=== PATIENT | male | born 1945 | race Caucasian/White ===

== ENCOUNTER 2022-04-07 03:01 | Inpatient (IN) | payer MEDICARE, BC ==
[~2022-04-07] VITALS: Ht 193 cm; Wt 129.7 kg
[2022-04-07 03:15] VITALS: BP 146/61
--- NOTE | 2022-04-07 03:15 | NUR ---
DIRECTOR FURNITURE NOTE: ADMITTED A 76-Y/O, MALE, FROM [facility]. ADMITTED ON A VOLUNTARY STATUS FOR SUICIDAL IDEATION WITH NO SPECIFIC PLAN. UPON FACE TO FACE EVALUATION, PATIENT IS ALERT AND ORIENTED X4, DEPRESSED, MOOD IS ANGRY, GUARDED, ARGUMENTATIVE, EASILY AGITATED/IRRITABLE, SARCASTIC REMARKS. PATIENT DENIES SI/HI/AVH AT THIS TIME. SKIN ASSESSMENT DONE. ALL BELONGINGS WERE CHECKED FOR CONTRABAND AND WAS KEPT IN PT'S ROOM LOCKER. HIS VALUABLES WERE TAKEN TO [facility]. PATIENT'S RIGHTS WERE DISCUSSED AND BOOKLET WAS GIVEN. CONTACTED DR. ARMSTRONG AND HOSPITALIST BRIDGETT LINN AND INFORMED THEM OF THE ADMISSION. BED IN LOW AND LOCKED POSITION. SAFETY PRECAUTIONS MAINTAINED. WILL CONTINUE TO MONITOR Q15 MINS FOR MOOD, SAFETY AND BEHAVIOR. PT REFUSED TO COMMENT ABOUT FLU/PNA VAC AND REFUSING TO GET ONE. WILL INFORM FAMILY MEMBER IN THE MORNING. Addendum: 04/07/22 at 0705 by EDNA SALAS RN 0700- PATIENT'S SHAHZAD KUNZ NOTIFIED OF THE ADMISSION ([phone]).
[2022-04-07] MEDS ORDERED: MAG HYDROX/AL HYDROX/SIMETH 30 ML UDC PO PRN (04:00)
[2022-04-07] MEDS ORDERED: BLOOD SUGAR DIAGNOSTIC 1 EACH STRIP IN ONE (04:00)
[2022-04-07] MEDS ORDERED: TEMAZEPAM 7.5 MG CAPSULE PO PRN (04:00)
[2022-04-07] MEDS ORDERED: MAGNESIUM HYDROXIDE 30 ML UDC PO PRN ×2 (04:00→11:30)
[2022-04-07] MEDS ORDERED: POLY119P2 PO (06:03)
[2022-04-07] MEDS ORDERED: POLY15DR40 EACHEYE (06:03)
[2022-04-07] MEDS ORDERED: MULT-754 PO (06:03)
[2022-04-07] MEDS ORDERED: CARB1TAB21 PO (06:03)
[2022-04-07] MEDS ORDERED: ASPI-1420 PO (06:03)
[2022-04-07] MEDS ORDERED: LACT10SO3 PO (06:03)
[2022-04-07] MEDS ORDERED: RISP0.2515 PO (06:03)
[2022-04-07] MEDS ORDERED: LORA10TA7 PO (06:03)
[2022-04-07] MEDS ORDERED: BUPR100T6 PO (06:03)
[2022-04-07] MEDS ORDERED: DONE10TA44 PO (06:03)
[2022-04-07] MEDS ORDERED: BISA-79 PO (06:03)
[2022-04-07] MEDS ORDERED: OXYC5CAP18 PO ×2 (06:03)
[2022-04-07] MEDS ORDERED: FAMO20TA8 PO (06:03)
[2022-04-07] MEDS ORDERED: QUET50TA PO (06:03)
[2022-04-07] MEDS ORDERED: NA P133E4 RC (06:03)
[2022-04-07] MEDS ORDERED: DULO30CA52 PO (06:03)
[2022-04-07] MEDS ORDERED: DEXTROSE 50%-WATER 50 ML DISP.SYRIN IV PRN (06:30)
--- NOTE | 2022-04-07 07:27 | NUR ---
GPS RN OPENING NOTE RECEIVED PT ASLEEP IN BED, EASILY AROUSED. PT IS A/O X4, ABLE TO MAKE NEEDS KNOWN. PT IS ON ROOM AIR, TOLERATING WELL. NO SOB NOTED. NOT IN ANY SIGN OF RESPIRATORY DISTRESS. PT DENIES SI. SAFETY MEASURES IN PLACE: BED IN LOWEST AND LOCKED POSITION, SIDE RAILS UPX2, BED ALARM ON, AND CALL LIGHT WITHIN REACH. WILL CONTINUE TO MONITOR THIS PATIENT Q15 MINUTES WITH THE HELP OF STAFF TO MAINTAIN SAFETY.
[2022-04-07] MEDS: BLOOD SUGAR DIAGNOSTIC 1 EACH STRIP VI SCH ×4 (07:55→21:48)
[2022-04-07] MEDS: INSULIN REGULAR, HUMAN 100 UNIT/ML 3 ML VIAL SQ PRN ×2 (07:57→11:14)
[2022-04-07 08:00] VITALS: BP 153/98
[2022-04-07] MEDS ORDERED: ACET-868 PO (08:03)
[2022-04-07] MEDS ORDERED: BISA10SU11 RC (08:03)
[2022-04-07] MEDS ORDERED: MAGN400O6 PO (08:03)
[2022-04-07] MEDS ORDERED: GLUC1KIT IM (08:03)
[2022-04-07] MEDS ORDERED: OXYC5TAB3 PO (08:03)
[2022-04-07] MEDS ORDERED: INSU100V27 SQ (08:03)
[2022-04-07 08:26] LABS: ALANINE AMINOTRANSFERASE < 6 U/L (12-78); ALBUMIN 3.2 g/dL (3.4-5.0); ALKALINE PHOSPHATASE 105 U/L (46-116); ASPARTATE AMINOTRANSFERASE 14 U/L (15-37); BILIRUBIN,TOTAL 0.3 mg/dL (0.2-1.0); CALCIUM, SERUM 9.2 mg/dL (8.5-10.1); CARBON DIOXIDE 27 mmol/L (21-32); CHLORIDE 101 mmol/L (98-107); CREATININE 2.2 mg/dL (0.6-1.3); GLUCOSE 227 mg/dL (74-106); POTASSIUM 4.3 mmol/L (3.5-5.1); SODIUM SERUM 137 mmol/L (136-145); TOTAL PROTEIN, SERUM 6.5 g/dL (6.4-8.2); UREA NITROGEN, BLOOD 24 mg/dL (7-18)
--- NOTE | 2022-04-07 09:08 | NUR ---
CAROL Initial Discharge Note: Pt [facility] at [facility] located at [address], [place] [address]; ([phone]). CAROL spoke with admin Romero ([phone]) who stated that pt is welcomed back but they do not provide transportation and family needs too. CAROL will contact pt's Rosa ([phone]) to gather further collateral. CAROL will continue to work with the MD, family, and pt to help coordinate appropriate discharge.
--- NOTE | 2022-04-07 09:08 | NUR ---
CAROL Clinical Note: Pt admitted as a voluntary pt and had suicidal ideations at his assisted living. Pt currently resides at [facility] located at [address] [facility] [address], [place] [address]; ([phone]). CAROL spoke with admin Romero ([phone]) who stated that pt is welcomed back but they do not provide transportation and family needs too. CAROL will contact pt's Rosa ([phone]) to gather further collateral.
--- NOTE | 2022-04-07 09:09 | NUR ---
Treatment Plan: Pt refused to sign treatment plan and was angry. He was verbally abusive towards this contract technical writer.
--- NOTE | 2022-04-07 10:17 | NUR ---
CAROL Family Contact: SW contacted pt's Rosa ([phone]) and left a detailed voicemail to gather collateral and discuss treatment/discharge plan.
[2022-04-07] MEDS: BUPROPION XL 150 MG TAB.ER.24 PO SCH (11:13)
--- NOTE | 2022-04-07 11:15 | NUR ---
CAROL Family Contact: SW contacted pt's ex- Rosa ([phone]) to gather collateral. She stated that she is the DPOA and she will bring the paperworks tonight and will give to community arts centre manager. She reported that she apologizes for pt's behavior and stated that pt does better with male staff instead. She expressed that pt's doctors at the [facility] are Blow Mold Machine Operator, Dr. Vincent ([phone]) and Psychiatrist, Dr. Sun ([phone]). She did stated that if staff wants to build rapport with the pt to offer him a diet soda or sandwich. Ex- reported that in regards to transportation that son Yoel ([phone]) would need 24 hour notice to be able to fish bait picker pt. Ex- reported that she would want pt to return back to [facility].
[2022-04-07] MEDS ORDERED: ACETAMINOPHEN 325 MG TABLET PO PRN (11:30)
[2022-04-07] MEDS ORDERED: SITAGLIPTIN PHOSPHATE 50 MG TABLET PO SCH (11:30)
[2022-04-07] MEDS ORDERED: NA PHOS,M-B/NA PHOS,DI-BA 1 EA ENEMA RC PRN (11:30)
[2022-04-07] MEDS ORDERED: BISACODYL SUPP (10 MG) 10 MG/SUPP.RECT SUPP.RECT RC PRN (11:30)
[2022-04-07] MEDS ORDERED: oxyCODONE IR immediate release 5 MG PO PRN (11:30)
[2022-04-07] MEDS ORDERED: OXYCODONE HCL PO PRN (11:30)
[2022-04-07] MEDS ORDERED: POLYETHYLENE GLYCOL 3350 17 GM POWD.PACK PO PRN (12:30)
--- NOTE | 2022-04-07 12:33 | NUR ---
GPS RN NOTE JANUVIA MEDICATION SCHEDULED AT 1130 NOT GIVEN. MEDICATION WAS NOT AVAILABLE IN THE OMNICEL. CALLED PHARMACY AND PER PHARMACIST DRUG IS NOT AVAILABLE AND WILL FOLLOW UP WITH PT'S FAMILY.
[2022-04-07] MEDS: CARBIDOPA/LEVODOPA 25/100 MG 1 UDTAB PO SCH ×2 (12:36→16:45)
[2022-04-07 14:59] LABS: THYROID STIMULATING HORMONE 1.894 uIU/mL (0.358-3.74)
[2022-04-07] MEDS: LORAZEPAM 0.5 MG TABLET PO PRN (15:20)
--- NOTE | 2022-04-07 15:23 | NUR ---
GPS RN NOTE PT NOTED FEELING ANXIOUS AND WAS CRYING. ENCOURAGED PT TO EXPRESSED HIMSELF AND PT EXPRESSED FEELING DEPRESSED AND REQUESTED TO SPEAK WITH COAT REPAIR INSPECTOR. OFFERED PT ATIVAN MEDICATION TO HELP HIM FEEL CALM AND PT AGREED. ATIVAN 0.5 MG PO 1 TAB GIVEN TO PT ORDERED Q6HRS PRN FOR ANXIETY. MADE BAKERY PASTRY INTERNSHIP AWARE AND SHE WENT TO THE PT ROOM. WILL MONITOR AND REASSESS PT.
--- NOTE | 2022-04-07 15:51 | NUR ---
CAROL Note: CAROL provided therapy for pt. Pt was crying and stating that he is unhappy. Pt expressing that he wants to . Pt has active suicidal thoughts. He stated that he is feeling betrayed by his ex-. CAROL actively listened and provided emotional support. CAROL notified charge nurse Jaylyn to monitor pt. CAROL informed Dr. Wilkerson. Addendum: 04/07/22 at 1557 by CAROL GILMORE Pt was adamant about leaving the hospital. CAROL convinced pt to stay at the hospital continue treatment. He stated that he is experiencing PTSD (VA pt) and has personal problems with ex-. Pt was understanding and appeared to be calm afterwards.
[2022-04-07 16:00] VITALS: BP 151/99
[2022-04-07] MEDS: *INSULIN REGULAR(HUMULIN R)HUM 100 UNIT/ML VIAL SQ PRN ×2 (16:43→21:51)
[2022-04-07] MEDS: POLYVINYL ALCOHOL 15 ML BOTTLE EACHEYE SCH ×3 (16:47→21:00)
--- NOTE | 2022-04-07 16:51 | NUR ---
GPS RN NOTE PT REFUSED HIS ARTIFICIAL TEARS EYE DROPS MEDICATION SCHEDULED AT 1700. EXPLAINED RISK AND BENEFITS, PT STILL REFUSED.
--- NOTE | 2022-04-07 18:39 | NUR ---
RN-NOTE4S PATIENT DENIES SI DURING FACE TO FACE ASSESSMENT WITH HIM, STATED" I NEED TO GO HOME TOMORROW AND THAT I NEED TO CALL MY EX- IS SHE CAN PICK ME UP TOMORROW". KNITTING DEMONSTRATOR DID EXPLAINED THAT HE CAN CALL THE EX- ONCE THE PSYCHIATRIST HAD A DISCHARGE ORDER. PATIENT DID UNDERSTAND BUT STILL WANTS TO CALL THE EX-.PORTABLE PHONE GIVEN TO THE PATIENT. WILL CONT. MONITORING FOR SAFETY AND BEHAVIOR. WILL ENDORSE TO THE INCOMING SHIFT FOR THE CONTINUITY OF CARE. AND MONITORING.
[2022-04-07 19:38] VITALS: BP 146/90
--- NOTE | 2022-04-07 19:50 | NUR ---
noc rn opening received patient in bed, a/ox3. no s/s of apparent distress in room air. no c/o at this time just asked for apple juice. denies any SI nor HI at this time. will do Q15 visual checks and rounding with staff to ensure patient safety.
[2022-04-07] MEDS: TRAZODONE 50 MG TABLET PO SCH (21:43)
--- NOTE | 2022-04-08 06:22 | NUR ---
noc rn note MRSA collected
[2022-04-08 06:34] LABS: BASOPHILS % (AUTO) 0.5 % (0.0-2.0); EOSINOPHILS % (AUTO) 2.9 % (0.0-6.0); HEMATOCRIT 45 % (39-51); HEMOGLOBIN 15.1 g/dL (13.5-17.5); LYMPHOCYTES # (AUTO) 1.8 K/uL (0.8-4.8); LYMPHOCYTES % (AUTO) 28.8 % (20.0-44.0); MEAN CORPUSCULAR HGB CONC 34 g/dl (31.0-36.0); MEAN CORPUSCULAR VOLUME 93 fL (80-96); MONOCYTES # (AUTO) 0.6 K/uL (0.1-1.30); MONOCYTES % (AUTO) 9.2 % (2.0-12.0); NEUTROPHILS # (AUTO) 3.8 K/uL (1.8-8.9); NEUTROPHILS % (AUTO) 58.6 % (43.0-81.0); PLATELET COUNT (AUTO) 228 K/uL (150-450); RED BLOOD CELL COUNT(AUTO) 4.82 MIL/uL (4.5-6.0); WHITE BLOOD COUNT (AUTO) 6.4 K/uL (4.3-11.0)
[2022-04-08 06:51] LABS: CALCIUM, SERUM 9.2 mg/dL (8.5-10.1); CARBON DIOXIDE 29 mmol/L (21-32); CHLORIDE 102 mmol/L (98-107); GLUCOSE 203 mg/dL (74-106); MAGNESIUM 2.1 mg/dL (1.8-2.4); PHOSPHORUS 3.9 mg/dL (2.5-4.9); POTASSIUM 4.3 mmol/L (3.5-5.1); SODIUM SERUM 137 mmol/L (136-145); UREA NITROGEN, BLOOD 23 mg/dL (7-18)
[2022-04-08 07:07] LABS: THYROID STIMULATING HORMONE 2.226 uIU/mL (0.358-3.74)
[2022-04-08] MEDS: BLOOD SUGAR DIAGNOSTIC 1 EACH STRIP VI SCH ×4 (07:55→22:10)
[2022-04-08 08:00] VITALS: BP 123/90
[2022-04-08] MEDS: MULTIVITAMINS,THERAGRAN 1 UDTAB TABLET PO SCH ×2 (08:29→09:00)
[2022-04-08] MEDS: ASPIRIN EC 81 MG TABLET.DR PO SCH ×2 (08:29→09:00)
[2022-04-08] MEDS: FAMOTIDINE (20 MG) 20 MG TABLET PO SCH ×2 (08:29→09:00)
[2022-04-08] MEDS: BUPROPION XL 150 MG TAB.ER.24 PO SCH ×2 (08:29→09:00)
[2022-04-08] MEDS: LORATADINE 10 MG TABLET PO SCH ×2 (08:29→09:00)
[2022-04-08] MEDS: LINAGLIPTIN 5 MG TABLET PO SCH ×2 (08:29→09:00)
[2022-04-08] MEDS: LACTULOSE 10 G/15 ML UDC (PYXIS) PO SCH ×2 (08:29→09:00)
[2022-04-08] MEDS: CARBIDOPA/LEVODOPA 25/100 MG 1 UDTAB PO SCH ×4 (08:29→17:00)
[2022-04-08] MEDS: POLYVINYL ALCOHOL 15 ML BOTTLE EACHEYE SCH ×5 (08:30→21:20)
[2022-04-08] MEDS: INSULIN REGULAR, HUMAN 100 UNIT/ML 3 ML VIAL SQ PRN (08:33)
--- NOTE | 2022-04-08 09:28 | NUR ---
RN NOTES: PT REFUSED ALL MEDS INCLUDING INSULIN. PT IS VERY AGITATED AND REPEATEDLY STATES HE WANTS TO LEAVE. RN REORIENTED PT, AND MADE CHARGE NURSE AWARE. CRISIS TEAM CALLED, PT IS STILL UPSET BUT A LITTLE CALMER AT THE MOMENT SITTING ON HIS WHEELCHAIR TALKING WITH FLIGHT TEACHER Addendum: 04/08/22 at 0938 by JOSE JUAN RANDOLPH RN [facility]
--- NOTE | 2022-04-08 10:20 | NUR ---
RN NOTES: PT MET WITH CRISIS TEAM AND INSTRUCTOR LOOPING FOR FURTHER ASSESSMENT AND EVAL REGARDING SI, TILE BURNER AND MD AWARE WILL CONT WITH PLAN OF CARE
--- NOTE | 2022-04-08 10:32 | NUR ---
CAROL Family Contact: CAROL contacted pt's ex- Rosa ([phone]) and notified that pt will be placed on a 72 hour hold. She stated that she is agreeable of this.
--- NOTE | 2022-04-08 11:07 | NUR ---
CAROL Therapy: SW met with patient for individual therapy. Pt was tearful and crying. Pt kept stating that he does not want to live anymore. Pt reported that he is unhappy with his life. SW encouraged pt to think positively. SW actively listened and provided emotional support. Pt was fixated on discharged and wants to leave he believes that he will be at the hospital for 1 year. Pt also refusing to take his medications. SW encouraged him to take his medications so that he can improve and his mood can improve. SW offered pt to take a shower or go outside for fresh air and pt refused that he wants to stay in his room. SW will continue to follow up with pt.
[2022-04-08] MEDS ORDERED: LORAZEPAM INJ 2 MG/ML VIAL IM ONE (11:30)
--- NOTE | 2022-04-08 11:33 | NUR ---
RN NOTES: IM ATIVAN GIVEN ONCE PER MD ORDER
--- NOTE | 2022-04-08 11:35 | NUR ---
MS RN NOTES: PT REFUSED 12PM MEDICATION, PT STATES "I AM NOT TAKING ANYTHING! I WANT TO GET OUT OF HERE!" CHARGE AND MD AWARE.
--- NOTE | 2022-04-08 11:48 | NUR ---
RN NOTES: PER US TECH, PT REFUSED RENAL ULTRASOUND, STATES " YOU WILL NEED TO CUT IT OUT OF MY BODY TO CHECK IT"
--- NOTE | 2022-04-08 13:00 | NUR ---
RN NOTES: URINE SAMPLE COLLECTED AFTER PT VOIDED IN URINAL, ALERTED LAB FOR CASHIER CHECKER.
--- NOTE | 2022-04-08 15:50 | NUR ---
CAROL Note: SW has been monitoring pt and pt was found laying on the floor stating that he doesn't want to live and wants to . SW attempted to comfort pt and requested treatment team to help pt get up from the floor. Pt continued to cry and verbalizing he does not want to live anymore. Dr. Wilkerson has been notified and emergency IM has been requested. Staff will continue to monitor pt.
[2022-04-08 15:56] LABS: BILIRUBIN,URINE NEGATIVE (NEGATIVE); COLOR,URINE YELLOW (YELLOW); LEUKOCYTE ESTERASE ,URINE NEGATIVE (NEGATIVE); NITRITE, URINE NEGATIVE (NEGATIVE); PROTEIN,URINE 3+ mg/dl (NEGATIVE); UGLUCOSE 1+ mg/dL (NEGATIVE); UROBILINOGEN,URINE 0.2 EU/dL (0.2)
[2022-04-08 16:00] VITALS: BP 145/95
[2022-04-08] MEDS ORDERED: OLANZAPINE 10 MG VIAL IM ONE (16:00)
--- NOTE | 2022-04-08 16:04 | NUR ---
RN NOTES; SW STATED TO RN PT IS LAYING ON THE FLOOR AND REFUSING TO GET UP. PT IS CRYING AND UPSET AND EXPRESSING PARANOAIA THAT SOMEONE IS GOING TO TAKE HIS KIDNEYS. PT REORIENTED AND REDIRECTED BY RN AND SW, PT BEHAVIOR STAYED THE SAME. MADE MD GERALDO AWARE. ORDERED IM ZYPREXA 10 MG ONCE. RN ADMINISTERED AT LEFT GLUTEUS MARY WITH NO ISSUES, PT WAS COMPLIANT WITH IM INJ. Addendum: 04/08/22 at 1808 by JOSE JUAN RANDOLPH RN 5150 SERVED TO PT WITH CAROL HERNANDEZ
[2022-04-08 16:12] LABS: CREATININE, URINE 141.8 MG/DL (30.0-125.0)
[2022-04-08 16:36] LABS: RBC,URINE 0-2 /HPF (0-2)
[2022-04-08 16:37] LABS: BACTERIA,URINE Moderate /HPF (None Seen); SQUAMOUS EPITHELIAL CELL,UR Few /HPF (None Seen); WBC,URINE NONE SEEN /HPF (0-3)
--- NOTE | 2022-04-08 19:33 | NUR ---
RN NOTES: RECEIVED PATIENT SLEEP IN BED, BED IN LOW POSITION, NO COMPLAIN OF PAIN AND DISCOMFORT AT THIS TIME, NO BEHAVIORAL OR ANY COMBATIVE BEHAVIOR WAS OBSERVED, KEPT CLEAN AND DRY ALL NEEDS MET WILL CONTINUE TO MONITOR.
[2022-04-08 20:00] VITALS: BP 117/49
[2022-04-08] MEDS: TRAZODONE 50 MG TABLET PO SCH (21:50)
[2022-04-08] MEDS: *INSULIN REGULAR(HUMULIN R)HUM 100 UNIT/ML VIAL SQ PRN (22:10)
--- NOTE | 2022-04-08 22:11 | NUR ---
RN NOTES: BLOOD SUGAR-167/ 3 UNITS REGULAR INSULIN GIVEN PER SLIDING SCALE.
[2022-04-09] MEDS: BLOOD SUGAR DIAGNOSTIC 1 EACH STRIP VI SCH ×4 (07:30→21:10)
[2022-04-09 08:00] VITALS: BP 161/83
[2022-04-09] MEDS: BUPROPION XL 150 MG TAB.ER.24 PO SCH (09:00)
[2022-04-09] MEDS: LORATADINE 10 MG TABLET PO SCH (09:00)
[2022-04-09] MEDS: LINAGLIPTIN 5 MG TABLET PO SCH (09:00)
[2022-04-09] MEDS: MULTIVITAMINS,THERAGRAN 1 UDTAB TABLET PO SCH (09:00)
[2022-04-09] MEDS: FAMOTIDINE (20 MG) 20 MG TABLET PO SCH (09:00)
[2022-04-09] MEDS: CARBIDOPA/LEVODOPA 25/100 MG 1 UDTAB PO SCH ×3 (09:00→17:00)
[2022-04-09] MEDS: ASPIRIN EC 81 MG TABLET.DR PO SCH (09:00)
[2022-04-09] MEDS: LACTULOSE 10 G/15 ML UDC (PYXIS) PO SCH (09:00)
[2022-04-09] MEDS: POLYVINYL ALCOHOL 15 ML BOTTLE EACHEYE SCH ×4 (09:00→21:08)
[2022-04-09 16:00] VITALS: BP 149/89
[2022-04-09] MEDS: QUETIAPINE FUMARATE 25 MG TABLET PO SCH (17:00)
--- NOTE | 2022-04-09 17:17 | NUR ---
RN NOTES PATIENT STRONGLY REFUSED TO TAKE MEDICATION AND ACCU CHECK, VERBALLY ABUSIVE TO STAFF. RISKS AND BENEFITS EXPLAINED, STRONGLY REFUSED
[2022-04-09 20:00] VITALS: BP 145/90
[2022-04-09] MEDS: TRAZODONE 50 MG TABLET PO SCH (21:08)
[2022-04-10 07:09] LABS: CALCIUM, SERUM 8.9 mg/dL (8.5-10.1); CARBON DIOXIDE 27 mmol/L (21-32); CHLORIDE 104 mmol/L (98-107); CREATININE 2.3 mg/dL (0.6-1.3); GLUCOSE 181 mg/dL (74-106); POTASSIUM 3.9 mmol/L (3.5-5.1); SODIUM SERUM 140 mmol/L (136-145); UREA NITROGEN, BLOOD 30 mg/dL (7-18)
[2022-04-10 08:00] VITALS: BP 139/76
[2022-04-10] MEDS: MULTIVITAMINS,THERAGRAN 1 UDTAB TABLET PO SCH (08:16)
[2022-04-10] MEDS: ASPIRIN EC 81 MG TABLET.DR PO SCH (08:16)
[2022-04-10] MEDS: LACTULOSE 10 G/15 ML UDC (PYXIS) PO SCH (08:16)
[2022-04-10] MEDS: LINAGLIPTIN 5 MG TABLET PO SCH (08:16)
[2022-04-10] MEDS: FAMOTIDINE (20 MG) 20 MG TABLET PO SCH (08:16)
[2022-04-10] MEDS: CARBIDOPA/LEVODOPA 25/100 MG 1 UDTAB PO SCH ×3 (08:16→16:16)
[2022-04-10] MEDS: BUPROPION XL 150 MG TAB.ER.24 PO SCH (08:17)
[2022-04-10] MEDS: LORATADINE 10 MG TABLET PO SCH (08:17)
[2022-04-10] MEDS: QUETIAPINE FUMARATE 25 MG TABLET PO SCH ×2 (08:17→16:16)
[2022-04-10] MEDS: POLYVINYL ALCOHOL 15 ML BOTTLE EACHEYE SCH ×5 (08:27→21:47)
[2022-04-10] MEDS: INSULIN REGULAR, HUMAN 100 UNIT/ML 3 ML VIAL SQ PRN ×2 (09:20→12:18)
[2022-04-10] MEDS: BLOOD SUGAR DIAGNOSTIC 1 EACH STRIP VI SCH ×4 (09:21→21:48)
[2022-04-10 16:00] VITALS: BP 99/53
--- NOTE | 2022-04-10 19:45 | NUR ---
RN OPENING NOTE RECEIVED PATIENT SLEEPING IN BED, EASILY AWAKENED, ALERT/ORIENTED X 2-3, WITH SOME CONFUSION, PT ABLE TO MAKE NEEDS KNOWN. PATIENT STABLE ON RA, NO S/S OF DISTRESS OR SOB NOTED, BREATHING EVEN AND UNLABORED. PATIENT CALM BUT TEARFUL, SPEAKING ABOUT DIVORCE AND STATES HE WAS TOLD BY SOMEONE THAT HE WAS GOING TO STAY HERE FOR 7 MONTHS, FEARFUL THAT HE'S GOING TO BE TAKEN TO ALF AFTER, STATES HE IS A GOOD PERSON. CALMED PATIENT DOWN AND REORIENTED. SAFETY MEASURES IN PLACE: WILL CONTINUE TO MONITOR PATIENT Q 15 MINS
[2022-04-10 20:00] VITALS: BP 106/57
[2022-04-10] MEDS: TRAZODONE 50 MG TABLET PO SCH (21:48)
[2022-04-10] MEDS: *INSULIN REGULAR(HUMULIN R)HUM 100 UNIT/ML VIAL SQ PRN (22:02)
--- NOTE | 2022-04-11 06:21 | NUR ---
RN CLOSING NOTES PATIENT SLEEPING IN BED, ALERT/ORIENTED X 2-3, SOME CONFUSION. PATIENT STABLE ON RA, NO S/S OF DISTRESS OR SOB NOTED, BREATHING EVEN AND UNLABORED. PATIENT KEEPS INSISTING HE WAS TOLD HE WAS GOING TO BE HERE FOR 7 MONTHS AND BELIEVES HE WILL BE TRANSFERRED TO SENIOR LIVING AFTER, DESPITE EXPLAINING TO PATIENT MULTIPLE TIMES THAT THIS IS UNTRUE, PATIENT KEEPS FOCUSING ON THIS. PATIENT ALSO VERY TEARFUL AND DEPRESSED D/T DIVORCE. PATIENT WAS ALSO INSISTING ON SLEEPING ON THE FLOOR AND BECAME UPSET WHEN HE WASN'T ALLOWED TO DO SO, WAS PLACED IN ANA CHAIR FOR A BIT D/T ATTEMPTING TO GET OUT OF BED WITH UNSTEADY GAIT, LATER RETURNED TO BED WITH NO ATTEMPTS TO GET OUT OF BED ANYMORE. REORIENTED AND COMFORTED PATIENT MULTIPLE TIMES DURING SHIFT. PATIENT WAS MED COMPLIANT. NO AGGRESSIVE BEHAVIOR THIS SHIFT. SAFETY MEASURES MAINTAINED, Q15 MIN SAFETY CHECKS. WILL ENDORSE TO DAYSHIFT RN FOR CONTINUITY OF CARE
--- NOTE | 2022-04-11 07:15 | NUR ---
RN OPENING NOTES: RECEIVED PATIENT SLEEPING IN BED, EASILY AROUSES TO VOICE AND TACTILE STIMULI. PATIENT IS ALERT/ORIENTED X 2, ON RA WITH NO RESPIRATORY DISTRESS NOTED, BREATHING EVEN AND UNLABORED. PATIENT ABLE TO MAKE NEEDS KNOWN. PATIENT CALM AT THIS TIME. PATIENT STATED THAT HE WAS TOLD HE WAS GOING TO STAY HERE FOR 7 MONTHS PATIENT REORIENTED. SAFETY MEASURES IMPLEMENTED. BED LOCKED AND IN LOWEST POSITION. WILL CONTINUE TO MONITOR PATIENT Q 15 MINS
[2022-04-11] MEDS: INSULIN REGULAR, HUMAN 100 UNIT/ML 3 ML VIAL SQ PRN ×3 (07:58→21:38)
[2022-04-11] MEDS: BLOOD SUGAR DIAGNOSTIC 1 EACH STRIP VI SCH ×4 (07:59→21:57)
[2022-04-11 08:00] VITALS: BP 138/67
[2022-04-11] MEDS: FAMOTIDINE (20 MG) 20 MG TABLET PO SCH (08:47)
[2022-04-11] MEDS: LACTULOSE 10 G/15 ML UDC (PYXIS) PO SCH (08:47)
[2022-04-11] MEDS: LINAGLIPTIN 5 MG TABLET PO SCH (08:48)
[2022-04-11] MEDS: LORATADINE 10 MG TABLET PO SCH (08:48)
[2022-04-11] MEDS: MULTIVITAMINS,THERAGRAN 1 UDTAB TABLET PO SCH (08:48)
[2022-04-11] MEDS: BUPROPION XL 150 MG TAB.ER.24 PO SCH (08:48)
[2022-04-11] MEDS: POLYVINYL ALCOHOL 15 ML BOTTLE EACHEYE SCH ×4 (08:48→21:38)
[2022-04-11] MEDS: ASPIRIN EC 81 MG TABLET.DR PO SCH (08:48)
[2022-04-11] MEDS: CARBIDOPA/LEVODOPA 25/100 MG 1 UDTAB PO SCH ×3 (08:48→16:52)
[2022-04-11] MEDS: QUETIAPINE FUMARATE 25 MG TABLET PO SCH ×2 (08:48→16:52)
[2022-04-11] MEDS: ACETAMINOPHEN 325 MG TABLET PO PRN (11:28)
--- NOTE | 2022-04-11 14:18 | NUR ---
ROSA KEYS CALLED AND UPDATED OF THE PATIENT'S CONDITION. EXPLAINED TO HER THAT THE PATIENT WILL BE ADMITTED FOR 14 DAY HOLD. NO FURTHER QUESTIONS OR CONCERNS AT THIS TIME
[2022-04-11 16:00] VITALS: BP 134/80
[2022-04-11] MEDS: *INSULIN REGULAR(HUMULIN R)HUM 100 UNIT/ML VIAL SQ PRN (17:02)
--- NOTE | 2022-04-11 18:44 | NUR ---
RN CLOSING NOTES PATIENT IN BED, AWAKE, ALERT, ORIENTED X 2-3, WITH SOME PERIODS OF CONFUSION. PATIENT ON RA WITH NO RESPIRATORY DISTRESS NOTED THROUGHOUT SHIFT. PATIENT HAD A TEARFUL EPISODE EARLIER WHEN HE WAS TALKING ABOUT HIS FRIEND AND DEPRESSED ABOUT HIS DIVORCE BUT BECAME EXCITED AND HAPPY IN THE LATE AFTERNOON STATING THAT HE ASKED A WOMAN TO HIM AND SHE SAID YES. PATIENT WAS MED COMPLIANT. NO AGGRESSIVE BEHAVIOR NOTED THROUGHOUT SHIFT. ALL SAFETY MEASURES IMPLEMENTED. ALL NEEDS MET AND ANTICIPATED. SAFETY CHECK DONE Q15 MIN WILL ENDORSE TO INCOMING NURSE FOR CONTINUITY OF CARE
[2022-04-11 20:00] VITALS: BP 113/86
[2022-04-11] MEDS: TRAZODONE 50 MG TABLET PO SCH (21:35)
[2022-04-12] MEDS: BLOOD SUGAR DIAGNOSTIC 1 EACH STRIP VI SCH ×4 (07:30→22:09)
[2022-04-12 08:00] VITALS: BP 152/77
[2022-04-12] MEDS: LORATADINE 10 MG TABLET PO SCH (09:04)
[2022-04-12] MEDS: LACTULOSE 10 G/15 ML UDC (PYXIS) PO SCH (09:04)
[2022-04-12] MEDS: ASPIRIN EC 81 MG TABLET.DR PO SCH (09:04)
[2022-04-12] MEDS: FAMOTIDINE (20 MG) 20 MG TABLET PO SCH (09:05)
[2022-04-12] MEDS: QUETIAPINE FUMARATE 25 MG TABLET PO SCH ×2 (09:05→17:24)
[2022-04-12] MEDS: CARBIDOPA/LEVODOPA 25/100 MG 1 UDTAB PO SCH ×3 (09:05→17:24)
[2022-04-12] MEDS: MULTIVITAMINS,THERAGRAN 1 UDTAB TABLET PO SCH (09:06)
[2022-04-12] MEDS: BUPROPION XL 150 MG TAB.ER.24 PO SCH (09:10)
[2022-04-12] MEDS: LINAGLIPTIN 5 MG TABLET PO SCH (09:10)
[2022-04-12] MEDS: POLYVINYL ALCOHOL 15 ML BOTTLE EACHEYE SCH ×4 (09:22→21:13)
[2022-04-12] MEDS: INSULIN REGULAR, HUMAN 100 UNIT/ML 3 ML VIAL SQ PRN ×2 (11:31→18:23)
[2022-04-12 16:00] VITALS: BP 126/92
[2022-04-12 20:13] VITALS: BP 155/88
[2022-04-12] MEDS: TRAZODONE 50 MG TABLET PO SCH (21:13)
[2022-04-12] MEDS: *INSULIN REGULAR(HUMULIN R)HUM 100 UNIT/ML VIAL SQ PRN (21:15)
[2022-04-12 23:04] LABS: CALCIUM, SERUM 8.8 mg/dL (8.5-10.1); CARBON DIOXIDE 24 mmol/L (21-32); CHLORIDE 103 mmol/L (98-107); CREATININE 2.2 mg/dL (0.6-1.3); GLUCOSE 198 mg/dL (74-106); SODIUM SERUM 136 mmol/L (136-145); UREA NITROGEN, BLOOD 34 mg/dL (7-18)
[2022-04-13] MEDS: BLOOD SUGAR DIAGNOSTIC 1 EACH STRIP VI SCH ×4 (07:30→21:46)
[2022-04-13 08:00] VITALS: BP 158/90
[2022-04-13] MEDS: CARBIDOPA/LEVODOPA 25/100 MG 1 UDTAB PO SCH ×3 (08:59→16:19)
[2022-04-13] MEDS: ASPIRIN EC 81 MG TABLET.DR PO SCH (08:59)
[2022-04-13] MEDS: LORATADINE 10 MG TABLET PO SCH (08:59)
[2022-04-13] MEDS: MULTIVITAMINS,THERAGRAN 1 UDTAB TABLET PO SCH (08:59)
[2022-04-13] MEDS: LACTULOSE 10 G/15 ML UDC (PYXIS) PO SCH (08:59)
[2022-04-13] MEDS: QUETIAPINE FUMARATE 25 MG TABLET PO SCH ×2 (08:59→16:19)
[2022-04-13] MEDS: LINAGLIPTIN 5 MG TABLET PO SCH (08:59)
[2022-04-13] MEDS: BUPROPION XL 150 MG TAB.ER.24 PO SCH (09:00)
[2022-04-13] MEDS: FAMOTIDINE (20 MG) 20 MG TABLET PO SCH (09:00)
[2022-04-13] MEDS: POLYVINYL ALCOHOL 15 ML BOTTLE EACHEYE SCH ×4 (09:22→21:26)
[2022-04-13] MEDS: *INSULIN REGULAR(HUMULIN R)HUM 100 UNIT/ML VIAL SQ PRN ×2 (09:35→21:47)
--- NOTE | 2022-04-13 10:00 | NUR ---
RN NOTES - BS = 228 , PER INSULIN RANGE 4 UNITS GIVEN RIGHT DELTOID OTHER SITE OPPOSED TO LAST TIME GIVEN TO HELP ROTATE THE SITES. PT COMPLIANT WITH CARE
[2022-04-13] MEDS: INSULIN REGULAR, HUMAN 100 UNIT/ML 3 ML VIAL SQ PRN (12:49)
--- NOTE | 2022-04-13 13:00 | NUR ---
RN NOTES BS = 195 , INSULIN GIVEN AT 3 UNITS PER INSULIN ORDER AT THIS TIME, IN OTHER SITE ON LEFT DELTOID AREA TO ROTATE THE SITES, PT COMPLIANT WITH CARE
--- NOTE | 2022-04-13 14:41 | NUR ---
RN OPENING NOTES - RECEIVED PATIENT AWAKE, ALERT, ORIENTED X 2-3, SITTING UP IN BED TALKING WITH ME AND ABLE TO MAKE ALL NEEDS KNOWN, SOME PERIODS OF CONFUSION NOTED, PATIENT ON ROOMAIR NO SOB, NO RESPIRATORY DISTRESS NOTED THROUGHOUT SHIFT, PATIENT EXPRESSED SADNESS BECAUSE HIS EX HAD SAID NO TO REMARRY HIM, GAVE PT ENCOURAGEMENT THAT THINGS HAPPEN FOR A REASON AND TO TRUST AND BELIEVE THINGS WILL GET BETTER, I ASKED IF HE WANTED PRAYER AND HE SAID " WELL YES MA'AM I SURE DO, SO WE PRAYED AND I TOLD HIM THAT GODS REJECTION NOW WAS A FORM OF PROTECTION FOR HIS FUTURE AND IT WAS GOD LEADING HIM INTO ANOTHER DIRECTION AND PATH FOR HIS LIFE" HIS EYES FILLED WITH TEARS AND HE WAS FULL OF MURPHY HE SAID " THIS REALLY GAVE HIM GREAT HOPE AND HE UNDERSTANDS WHAT I AM TRYING TO EXPLAIN TO HIM SO HE CHOSE TO BE HAPPY" NO AGGRESSIVE BEHAVIOR NOTED, PT HELPFUL WITH HIS ROOM MATE AND ALL SAFETY MEASURES IMPLEMENTED. ALL NEEDS MET AND ANTICIPATED. SAFETY CHECKS PERFORMED PER GPS LUIS CALL , WILL CONTINUE TO MONITOR FOR NEEDS & SAFETY.
[2022-04-13 16:00] VITALS: BP 150/84
--- NOTE | 2022-04-13 16:00 | NUR ---
RN-CO; Noticed that patient is easily agitated especially when approach and redirected. Reminded to always use his walker and call for assistance but he is restless and preoccupied with his thoughts.
--- NOTE | 2022-04-13 16:02 | NUR ---
CAROL Family Contact: CAROL contacted pt's ex- Rosa ([phone]) and shared that pt fell in January 19 at home. She stated that she has been contacting her and stating that he has pain. CAROL transferred this note to charge nurse Keely.
--- NOTE | 2022-04-13 16:12 | NUR ---
RN-CO: DR Samuel made aware that patient has moderate to severe body pain due to hx of rib fracture. Awaiting for response.
--- NOTE | 2022-04-13 16:16 | NUR ---
CAROL Family Contact: CAROL contacted pt's ex- Rosa ([phone]) who stated that pt has a CT scan on April 21. She wanted to know dc day. CAROL will discuss with Dr. Wilkerson.
[2022-04-13] MEDS: LORAZEPAM 0.5 MG TABLET PO PRN (16:19)
[2022-04-13] MEDS: ACETAMINOPHEN 325 MG TABLET PO PRN (16:19)
--- NOTE | 2022-04-13 16:50 | NUR ---
RN NOTES FAMILY MEMBER CALLING REQUESTING THAT WE GIVE PAIN MEDICATION TO PT HE IS STATING TO FAMILY ON PHONE HE IS IN PAIN, PT GIVEN ALL MD ORDERS AND PRN ORDERS TO HELP RELIEVE PAIN OR ANXIETY AT THIS TIME, WILL CONTINUE TO MONITOR PT - PT STATING NO PAIN AT THIS TIME.
--- NOTE | 2022-04-13 18:00 | NUR ---
RN NOTES PT WAS GIVEN THE HYDROCODONE PER PT AND FAMILY REQUEST FAMILY HAD CALLED 3 TIMES REQUESTING THE MEDICATION STATING PT WAS STATING HE WAS IN PAIN ON PHONE TO THEM, PT EDUCATED TO STAY IN BED AND RELAX DUE TO MEDICATION MAKING SENSE OF BALANCE UNSTEADY AND BODY MUSCLES BEING MORE RELAXED TO HELP REDUCE ANY PAIN OR DISCOMFORT, PT AGREED TO STAY IN BED AND RELAX, WILL MONITOR PT FOR SAFETY
--- NOTE | 2022-04-13 18:34 | NUR ---
RN NOTES PT NON-COMPLIANT WITH DIRECTION AND EDUCATION OF STAYING IN BED TO RELAX EITHER SITTING OR LAYING DOWN DUE TO TX OF MEDICATION OF THE HYDROCODONE AND AMBULATED WITH WALKER INTO DINING AREA ON OWN, DID NOT ASK FOR ANY HELP, PT STATED HE REACHED DOWN FOR A BOOK AND THEN TUMBLED OVER AND THEN LANDED ON HIS BUTTOCKS ON THE FLOOR, PT IS NOT STATING ANY PAIN AT THIS TIME. ALL VS TAKEN B/P = 133/70, PULSE = 118, TEMP = 97.6, RR = 20 PAIN IS A 0 OUT OF 0 - 10 AT THIS TIME, MD CHOW NOTIFIED, RN BOARD MEMBER RUSS NOTIFIED, MD WALTERS NOTIFIED, FAMILY OR EX ROSA KEYS NOTIFIED LEFT A MESSAGE, AWAITING ANY NEW ORDERS AT THIS TIME, PT HELP UP TO WHEEL CHAIR AND WHEELED BACK INTO BEDROOM AND HELPED BACK TO BED AND INSTRUCTED TO PLEASE STAY IN BED UNTIL NOTIFIED TO REST AND FOR SAFETY, ALL WHEELS ON BED LOCKED, BED ALARM ON, INSTRUCTED TO ASK FOR HELP IF NEEDED FOR ANY REASON TO VOID OR NEED OF WATER FOOD OR OTHER, AGREED TO BE COMPLIANT, UNDER CLOSE MONITORING AT THIS TIME TO PROVIDE SAFETY.
--- NOTE | 2022-04-13 18:45 | NUR ---
RN-CO: Paged Dr Samuel to obtain order due to status post fall incident. Offered Tylenol patient refused at this time. Dr Mayi Nielsen made aware of the incident, re educated( huddle) the staff to be more vigilant to prevent another incident. Awaiting for Dr Samuel to call back. Sample Taker Operator, Gisela made aware of the incident.
--- NOTE | 2022-04-13 18:55 | NUR ---
RN NOTES MD WALTERS CALLED TWO TIMES NO RESPONSE AT THIS TIME WILL ENDORSE TO ONCOMING MD FOR NEXT SHIFT FOR ANY NEW ORDERS AND WILL ENDORSE TO ONCOMING NURSE ONCOMING SHIFT, LEFT MESSAGE FOR FAMILY ON VOICE MAIL TO ROSA KEYS ABOUT THE WITNESSED FALL.
--- NOTE | 2022-04-13 19:03 | NUR ---
RN-CO: X RAY OF THE LUMBAR ORDERED BY DR WALTERS , NOTED .
[2022-04-13 20:00] VITALS: BP 155/73
[2022-04-13] MEDS: TRAZODONE 50 MG TABLET PO SCH (21:26)
--- NOTE | 2022-04-14 01:36 | NUR ---
RN NOTE: RELAYED TO FAMILY MEDICINE PHYSICIAN ASSISTANT ALETHEA HURLEY RE: URINE CULTURE AND SENSITIVITY RESULT AND OBTAIN NEW ORDER OF BACTRIM DS PO BID NOTED AND CARRIED OUT.
--- NOTE | 2022-04-14 07:15 | NUR ---
RN NOTE- PT IN ROOM, WITHDRAWN, ISOLATIVE, CALM AND COMFORTABLE, NO SIGNS OF DISTRESS NOTED, MED COMPLIANT, PO INTAKE GOOD, NO BEHAVIORAL ISSUES, DENIES SI HI VH
[2022-04-14] MEDS: BLOOD SUGAR DIAGNOSTIC 1 EACH STRIP VI SCH ×4 (07:28→21:25)
[2022-04-14] MEDS: INSULIN REGULAR, HUMAN 100 UNIT/ML 3 ML VIAL SQ PRN ×3 (07:35→17:04)
[2022-04-14 08:00] VITALS: BP 133/82
[2022-04-14] MEDS: BUPROPION XL 150 MG TAB.ER.24 PO SCH (08:46)
[2022-04-14] MEDS: QUETIAPINE FUMARATE 25 MG TABLET PO SCH ×2 (08:46→16:36)
[2022-04-14] MEDS: MULTIVITAMINS,THERAGRAN 1 UDTAB TABLET PO SCH (08:46)
[2022-04-14] MEDS: SULFAMETH/TRIMETH 800/160 MG 1 UDTAB TABLET PO SCH ×2 (08:46→21:13)
[2022-04-14] MEDS: LACTULOSE 10 G/15 ML UDC (PYXIS) PO SCH (08:46)
[2022-04-14] MEDS: ASPIRIN EC 81 MG TABLET.DR PO SCH (08:46)
[2022-04-14] MEDS: CARBIDOPA/LEVODOPA 25/100 MG 1 UDTAB PO SCH ×3 (08:46→16:36)
[2022-04-14] MEDS: FAMOTIDINE (20 MG) 20 MG TABLET PO SCH (08:46)
[2022-04-14] MEDS: LORATADINE 10 MG TABLET PO SCH (08:46)
[2022-04-14] MEDS: LINAGLIPTIN 5 MG TABLET PO SCH (08:46)
[2022-04-14] MEDS: POLYVINYL ALCOHOL 15 ML BOTTLE EACHEYE SCH ×4 (08:47→21:13)
--- NOTE | 2022-04-14 12:00 | NUR ---
Facility Contact: SW spoke with admin Romero ([phone]) who stated that she would need to discuss with treatment team and they will possibly need to assess pt before returning back. SW contacted again at 12PM to follow up they stated that they will either contact this production underwriter end of today or tomorrow.
--- NOTE | 2022-04-14 13:33 | NUR ---
FACILITY CONTACT: CAROL RECEIVED A CALL FROM ROSA SLAUGHTERURA ADMIN ([phone]) ([phone]) AND PERSONAL NUMBER ([phone]) WHO WOULD WANT TO DO A FACETIME ASSESSMENT TOMORROW 04/14. CAROL FAXED PATIENT'S UPDATED CLINICALS.
[2022-04-14 16:00] VITALS: BP 138/82
[2022-04-14 21:00] VITALS: BP 143/69
[2022-04-14] MEDS: TRAZODONE 50 MG TABLET PO SCH (21:13)
[2022-04-14] MEDS: *INSULIN REGULAR(HUMULIN R)HUM 100 UNIT/ML VIAL SQ PRN (21:37)
[2022-04-15] MEDS: BLOOD SUGAR DIAGNOSTIC 1 EACH STRIP VI SCH ×4 (07:30→22:39)
[2022-04-15 08:00] VITALS: BP 145/79
--- NOTE | 2022-04-15 08:00 | NUR ---
Pt received from incoming nurse awake and alert Vital signs stable. PT sitting in bed quietly reading his journal. Pt took all meds. Will continue to monitor.
[2022-04-15] MEDS: CARBIDOPA/LEVODOPA 25/100 MG 1 UDTAB PO SCH ×3 (09:44→17:46)
[2022-04-15] MEDS: LACTULOSE 10 G/15 ML UDC (PYXIS) PO SCH (09:44)
[2022-04-15] MEDS: BUPROPION XL 150 MG TAB.ER.24 PO SCH (09:44)
[2022-04-15] MEDS: LINAGLIPTIN 5 MG TABLET PO SCH (09:45)
[2022-04-15] MEDS: FAMOTIDINE (20 MG) 20 MG TABLET PO SCH (09:45)
[2022-04-15] MEDS: QUETIAPINE FUMARATE 25 MG TABLET PO SCH ×2 (09:45→17:46)
[2022-04-15] MEDS: ASPIRIN EC 81 MG TABLET.DR PO SCH (09:45)
[2022-04-15] MEDS: LORATADINE 10 MG TABLET PO SCH (09:45)
[2022-04-15] MEDS: SULFAMETH/TRIMETH 800/160 MG 1 UDTAB TABLET PO SCH ×2 (09:51→21:35)
[2022-04-15] MEDS: MULTIVITAMINS,THERAGRAN 1 UDTAB TABLET PO SCH (09:51)
[2022-04-15] MEDS: POLYVINYL ALCOHOL 15 ML BOTTLE EACHEYE SCH ×4 (09:52→21:36)
--- NOTE | 2022-04-15 11:41 | NUR ---
FACILITY CONTACT: SW RECEIVED A CALL FROM ROSA SNELL [employer] ([phone]) (F:[phone]) WHO ASSESSED PT VIA [employer] AND STATED PT IS WELCOMED BACK ON WEDNESDAY. SW SENT PT'S RECENT CLINICAL NOTES.
--- NOTE | 2022-04-15 12:46 | NUR ---
Court Notification: SW notified pt's ex- Rosa ([phone]) and notified of 5250 hearing today.
[2022-04-15 16:00] VITALS: BP 111/52
--- NOTE | 2022-04-15 16:41 | NUR ---
Court Hearing: Patient's court hearing for 2101 hearing was upheld GD and danger to self.
[2022-04-15] MEDS: *INSULIN REGULAR(HUMULIN R)HUM 100 UNIT/ML VIAL SQ PRN ×2 (18:43→22:32)
[2022-04-15 18:59] LABS: CARBON DIOXIDE 30 mmol/L (21-32); CHLORIDE 103 mmol/L (98-107); CREATININE 2.6 mg/dL (0.6-1.3); GLUCOSE 218 mg/dL (74-106); POTASSIUM 4.5 mmol/L (3.5-5.1); SODIUM SERUM 139 mmol/L (136-145); UREA NITROGEN, BLOOD 39 mg/dL (7-18)
--- NOTE | 2022-04-15 19:18 | NUR ---
Report given to incoming nurse. Pt in stable conditon. no acute distress noted.
[2022-04-15 20:58] VITALS: BP 137/72
[2022-04-15] MEDS: SIMVASTATIN 10 MG TABLET PO SCH (22:30)
[2022-04-15] MEDS: TRAZODONE 50 MG TABLET PO SCH (22:30)
[2022-04-16] MEDS: BLOOD SUGAR DIAGNOSTIC 1 EACH STRIP VI SCH ×4 (07:30→22:12)
[2022-04-16 08:00] VITALS: BP 148/84
--- NOTE | 2022-04-16 08:00 | NUR ---
PATIENT RECEIVED FROM OUTGOING NURSE AWAKE AND ALERT. VITAL SIGNS STABLE. PATIENT BUN ELEVATED. MD ORDER NORMAL SALINE @ 100ML. PT FOR DISCHARGE TOMORROW. PENDING COVID TEST.
[2022-04-16] MEDS: SULFAMETH/TRIMETH 800/160 MG 1 UDTAB TABLET PO SCH ×2 (09:00→21:25)
[2022-04-16] MEDS: LACTULOSE 10 G/15 ML UDC (PYXIS) PO SCH (09:41)
[2022-04-16] MEDS: POLYVINYL ALCOHOL 15 ML BOTTLE EACHEYE SCH ×4 (09:41→21:26)
[2022-04-16] MEDS: BUPROPION XL 150 MG TAB.ER.24 PO SCH (09:41)
[2022-04-16] MEDS: MULTIVITAMINS,THERAGRAN 1 UDTAB TABLET PO SCH (09:41)
[2022-04-16] MEDS: FAMOTIDINE (20 MG) 20 MG TABLET PO SCH (09:41)
[2022-04-16] MEDS: ASPIRIN EC 81 MG TABLET.DR PO SCH (09:41)
[2022-04-16] MEDS: QUETIAPINE FUMARATE 25 MG TABLET PO SCH ×2 (09:41→17:27)
[2022-04-16] MEDS: LINAGLIPTIN 5 MG TABLET PO SCH (09:41)
[2022-04-16] MEDS: LORATADINE 10 MG TABLET PO SCH (09:42)
[2022-04-16] MEDS: INSULIN REGULAR, HUMAN 100 UNIT/ML 3 ML VIAL SQ PRN ×2 (09:46→22:21)
[2022-04-16] MEDS: CARBIDOPA/LEVODOPA 25/100 MG 1 UDTAB PO SCH ×3 (09:48→17:27)
[2022-04-16] MEDS ORDERED: IV NS 0.9% 1,000 ML IV ONE (15:30)
[2022-04-16 16:00] VITALS: BP 149/68
--- NOTE | 2022-04-16 17:06 | NUR ---
IV of gauge #20 started on the left arm and pt. tolerated well with good blood return.
--- NOTE | 2022-04-16 19:16 | NUR ---
REPORT GIVEN TO INCOMING NURSE. NO ACUTE DISTRESS NOTED. PATIENT IN STABLE CONDITION.
[2022-04-16 20:00] VITALS: BP 154/95
[2022-04-16] MEDS: TRAZODONE 50 MG TABLET PO SCH (22:12)
[2022-04-16] MEDS: SIMVASTATIN 10 MG TABLET PO SCH (22:12)
[2022-04-17 08:00] VITALS: BP 156/88
--- NOTE | 2022-04-17 08:05 | NUR ---
CAROL Discharge Note: Pt currently resides at [facility] located at [address] [place] [address]; ([phone]). Patients Rosa ([phone]) will fish bait picker pt at 3PM. CAROL spoke with admin Romero ([phone]) who stated that pt is welcomed back. Pt is alert and oriented x3. Pt denies suicidal or homicidal ideation. Pt denies visual/auditory hallucinations. Pt will follow up with Mortgage Processor, Dr. Carlton Poon [facility] at [address] [place] [address]; . Pt will follow up with Psychiatrist, Dr. Sun at [facility] at [address] [place] [address]; . Pt presents with euthymic mood and congruent affect. Addendum: 04/17/22 at 0952 by CAROL GILMORE Pt will follow up with Psychiatrist, Dr. Sun at [facility] at [address] [place] [address]; on June 08 at 8AM, per [facility] medical records receptionist.
[2022-04-17] MEDS: BLOOD SUGAR DIAGNOSTIC 1 EACH STRIP VI SCH ×2 (08:55→13:16)
[2022-04-17] MEDS: FAMOTIDINE (20 MG) 20 MG TABLET PO SCH (08:56)
[2022-04-17] MEDS: LINAGLIPTIN 5 MG TABLET PO SCH (08:56)
[2022-04-17] MEDS: BUPROPION XL 150 MG TAB.ER.24 PO SCH (08:56)
[2022-04-17] MEDS: LORATADINE 10 MG TABLET PO SCH (08:56)
[2022-04-17] MEDS: QUETIAPINE FUMARATE 25 MG TABLET PO SCH (08:56)
[2022-04-17] MEDS: ASPIRIN EC 81 MG TABLET.DR PO SCH (08:56)
[2022-04-17] MEDS: MULTIVITAMINS,THERAGRAN 1 UDTAB TABLET PO SCH (08:56)
[2022-04-17] MEDS: CARBIDOPA/LEVODOPA 25/100 MG 1 UDTAB PO SCH ×2 (08:58→13:18)
[2022-04-17] MEDS: SULFAMETH/TRIMETH 800/160 MG 1 UDTAB TABLET PO SCH (08:59)
[2022-04-17] MEDS: LACTULOSE 10 G/15 ML UDC (PYXIS) PO SCH (08:59)
[2022-04-17] MEDS: POLYVINYL ALCOHOL 15 ML BOTTLE EACHEYE SCH ×2 (09:00→13:17)
[2022-04-17] MEDS: INSULIN REGULAR, HUMAN 100 UNIT/ML 3 ML VIAL SQ PRN ×2 (09:01→13:19)
--- NOTE | 2022-04-17 09:02 | NUR ---
Dr. Wilkerson gave an order to D/C hold and D/c to [facility] and to follow up with psych and medical doctors.
--- NOTE | 2022-04-17 09:51 | NUR ---
CAROL Coordination of Care: Pt will follow up with Psychiatrist, Dr. Sun at [facility] at [address] [place], [place] [id number]; on June 08 at 8AM, per O[facility] receptionist scheduler.
[2022-04-17] MEDS ORDERED: IV NS 0.9% 1,000 ML IV ONE (10:30)
--- NOTE | 2022-04-17 14:00 | NUR ---
GPS/RN PT DISCHARGED TO ASSISTED LIVING FACILITY WITH HIS AND SON A RIDE. PRESCRIPTIONS AND EXIT CARE INSTRUCTIONS GIVEN AND UNDERSTOOD. NO SI/HI/AVH AT THE TIME OF DISCHARGE REPORTED. PROPERTY RETURNED. VSS PT LEFT VIA W/C TO PRIVATE CAR.
--- NOTE | 2022-04-20 10:33 | NUR ---
CAROL Family Contact: CAROL contacted pt's ex- Rosa ([phone]) and she stated that pt's belongings were not given. CAROL gave [facility] intensive care unit nurse pt's belongings to mail it out to his assisted living.
== END 2022-04-17 14:00 | DRG 885 ==
LOC: GPS 03:01
PROVIDERS: ADMIT Psychiatry & Neurology Psychiatry
DX: F29 Unspecified psychosis not due to a substance or known physiological condition (principal); N18.9 Chronic kidney disease, unspecified; N17.0 Acute kidney failure with tubular necrosis; E11.65 Type 2 diabetes mellitus with hyperglycemia; F33.2 Major depressive disorder, recurrent severe without psychotic features; R45.851 Suicidal ideations; E44.0 Moderate protein-calorie malnutrition; F41.9 Anxiety disorder, unspecified; F43.10 Post-traumatic stress disorder, unspecified; E11.22 Type 2 diabetes mellitus with diabetic chronic kidney disease; G20 Parkinson's disease; Z79.899 Other long term (current) drug therapy; Z79.4 Long term (current) use of insulin; Z79.82 Long term (current) use of aspirin; E86.1 Hypovolemia; Z87.891 Personal history of nicotine dependence; Z91.14 Patient's other noncompliance with medication regimen
CPT/HCPCS: 36415; 72110-TC; 80048-TC; 80053-TC; 80061-TC; 81001; 82570-TC; 82607-TC; 82962-TC; 83735-TC; 84100-TC; 84207; 84300-TC; 84443-TC; 85025-TC; 87081-TC; 87086-TC; 97112-TC; 97530-TC; J1815; J2060; J3490; J7030